=== PATIENT | male | born 2000 | race Caucasian/White ===

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

== ENCOUNTER 2018-05-03 15:18 | Emergency (ER) | payer MEDICAID ==
[~2018-05-03] VITALS: Ht 175.3 cm; Wt 65.8 kg
[2018-05-03 15:18] VITALS: BP 133/78
== END 2018-05-03 16:54 | disposition home or self-care (01) ==
LOC: ER 15:23
DX: S83.8X2A Sprain of other specified parts of left knee, initial encounter (principal); M79.644 Pain in right finger(s); X58.XXXA Exposure to other specified factors, initial encounter; Y93.75 Activity, martial arts; Y92.39 Other specified sports and athletic area as the place of occurrence of the external cause; Y99.8 Other external cause status
CPT/HCPCS: 29130; 73140; 99283; A4606

== ENCOUNTER 2018-08-08 20:17 | Emergency (ER) | payer MEDICAID ==
[~2018-08-08] VITALS: Ht 177.8 cm; Wt 68.0 kg
[2018-08-08 20:50] VITALS: BP 129/73
[2018-08-08] MEDS ORDERED: IBUPROFEN 600 MG TABLET PO ONE ×2 (21:20→21:30)
== END 2018-08-08 23:01 | disposition home or self-care (01) ==
LOC: ER 20:21
DX: S43.492A Other sprain of left shoulder joint, initial encounter (principal); W18.39XA Other fall on same level, initial encounter; Y93.89 Activity, other specified; Y92.89 Other specified places as the place of occurrence of the external cause; Y99.8 Other external cause status
CPT/HCPCS: 73030-TC

== ENCOUNTER 2020-07-21 23:02 | Emergency (ER) | payer MEDICAID ==
[~2020-07-21] VITALS: Ht 177.8 cm; Wt 68.0 kg
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
[2020-07-22] MEDS ORDERED: IBUP-1957 PO (00:25)
[2020-07-22] MEDS ORDERED: IBUPROFEN 400 MG TABLET PO ONE (00:30)
[2020-07-22 00:45] VITALS: BP 127/78
--- NOTE | 2020-07-22 00:45 | NUR ---
Patient placed on a right arm shoulder sling
--- NOTE | 2020-07-22 00:45 | NUR ---
Patient discharged to home in stable condition. Written and verbal after care instructions given. Patient verbalizes understanding of instruction.
== END 2020-07-22 00:46 | disposition home or self-care (01) ==
LOC: ER 23:05
DX: S43.491A Other sprain of right shoulder joint, initial encounter (principal); F10.10 Alcohol abuse, uncomplicated; F17.200 Nicotine dependence, unspecified, uncomplicated; Y90.9 Presence of alcohol in blood, level not specified; Z79.899 Other long term (current) drug therapy; W18.39XA Other fall on same level, initial encounter; Y93.89 Activity, other specified; Y92.89 Other specified places as the place of occurrence of the external cause; Y99.8 Other external cause status
CPT/HCPCS: 73030; 99283; J7030

== ENCOUNTER 2023-10-18 19:01 | Emergency (ER) | payer MEDICAID ==
[~2023-10-18] VITALS: Ht 175.3 cm; Wt 72.6 kg
[~2023-10-18 19:01] MED LIST: IBUP-1957 PO
--- NOTE | 2023-10-18 20:15 | NUR ---
BIBS FOR SUDDEN L MID BACK PAIN
--- NOTE | 2023-10-18 21:03 | NUR ---
xray at bedside
[2023-10-18] MEDS ORDERED: CEFTRIAXONE 500 MG VIAL ONE (21:06)
[2023-10-18] MEDS ORDERED: IBUPROFEN 600 MG TABLET ONE (21:06)
[2023-10-18] MEDS ORDERED: LIDOCAINE 0.5% HCL 50 ML VIAL ONE (21:08)
[2023-10-18] MEDS: CEFTRIAXONE 1 G VIAL IM ONE (21:15)
[2023-10-18] MEDS: IBUPROFEN 600 MG TABLET PO ONE (21:15)
--- NOTE | 2023-10-18 21:27 | NUR ---
urine collected and sent to lab
[2023-10-18 21:59] LABS: APPEARANCE,URINE CLEAR (CLEAR); BILIRUBIN,URINE 1+ (NEGATIVE); BLOOD, URINE NEGATIVE Ery/uL (NEGATIVE); COLOR,URINE DARK YELLOW (YELLOW); KETONES,URINE NEGATIVE (NEGATIVE); LEUKOCYTE ESTERASE ,URINE NEGATIVE (NEGATIVE); NITRITE, URINE NEGATIVE (NEGATIVE); PROTEIN,URINE TRACE mg/dl (NEGATIVE); UGLUCOSE NEGATIVE (NEGATIVE)
[2023-10-18 22:15] LABS: ADD URINE CULTURE NO; BACTERIA,URINE 1+ /HPF (None Seen)
[2023-10-18] MEDS ORDERED: DOXY-326 PO (22:18)
[2023-10-18] MEDS ORDERED: LIDOCAINE 5% (PATCH) 1 EA PATCH TP ONE (22:23)
[2023-10-18 22:27] VITALS: BP 133/89; TEMP 98; O2SAT 99
[2023-10-18] MEDS: LIDOCAINE 5% (PATCH) 1 EA PATCH TP ONE (22:27)
== END 2023-10-18 22:28 | disposition home or self-care (01) ==
LOC: ER 19:04
DX: R07.89 Other chest pain (principal); R30.0 Dysuria; F17.200 Nicotine dependence, unspecified, uncomplicated; Z79.1 Long term (current) use of non-steroidal anti-inflammatories (NSAID)
CPT/HCPCS: 99285; 71045; 96372; 93005; 81001; J3490; J0696